=== PATIENT | female | born 1945 | race Caucasian/White ===

== ENCOUNTER 2018-11-09 10:11 | Emergency (ER) | payer OTHER, MEDICARE ==
[~2018-11-09] VITALS: Ht 170.2 cm; Wt 99.8 kg
[2018-11-09] MEDS ORDERED: ASPIRIN 81 MG TAB.CHEW PO ONE (10:45)
[2018-11-09 12:11] LABS: HEMATOCRIT 41.3 % (36-48); HEMOGLOBIN 13.7 g/dL (12.0-16.0); LYMPHOCYTES % (AUTO) 17.8 % (20.5-51.5); MEAN CORPUSCULAR HEMOGLOBIN 29 pg (27-31); MEAN CORPUSCULAR HGB CONC 33 % (32-36); MEAN CORPUSCULAR VOLUME 87 fL (79.0-98.0); NEUTROPHILS % (AUTO) 68.7 % (40.0-70.0); PLATELET COUNT (AUTO) 230 K/uL (130-430); RED BLOOD CELL COUNT(AUTO) 4.76 MIL/uL (4.2-6.2); RED CELL DISTRIBUTION WIDTH 13.5 % (9.0-15.0); WHITE BLOOD COUNT (AUTO) 4.7 K/uL (4.8-10.8)
[2018-11-09 12:12] LABS: BASOPHILS # (AUTO) 0.1 K/uL (0.0-0.2); BASOPHILS % (AUTO) 1.9 % (0.0-2.0); EOSINOPHILS # (AUTO) 0.1 K/uL (0.0-0.4); LYMPHOCYTES # (AUTO) 0.8 K/uL (1.0-5.5); MONOCYTES # (AUTO) 0.5 K/uL (0.0-1.0); MONOCYTES % (AUTO) 9.6 % (1.7-9.3); NEUTROPHILS # (AUTO) 3.3 K/uL (1.8-7.7)
[2018-11-09 12:14] LABS: ANION GAP 7 (5-15); CHLORIDE 105 mmol/L (98-107); CREATININE 0.74 mg/dL (0.55-1.30); GLUCOSE 96 mg/dL (70-99); POTASSIUM 4.9 mmol/L (3.5-5.1); SODIUM SERUM 140 mmol/L (136-145); UREA NITROGEN, BLOOD 13 mg/dL (8-21)
[2018-11-09 12:15] LABS: GFR AFRICAN AMERICAN 100 mL/min (>90)
[2018-11-09 12:19] LABS: PROTHROMBIN TIME 10.4 SECS (9.5-12.5)
[2018-11-09 12:26] LABS: ALANINE AMINOTRANSFERASE 16 U/L (12-78); ALBUMIN 3.6 g/dL (3.4-4.8); ASPARTATE AMINOTRANSFERASE 18 U/L (10-37); TOTAL BILIRUBIN 1.1 mg/dL (0.0-1.0)
[2018-11-09 12:58] VITALS: BP_SYST 124
== END 2018-11-09 12:58 | disposition home or self-care (01) ==
LOC: SED 10:11
DX: R07.89 Other chest pain (principal); F41.9 Anxiety disorder, unspecified; E78.5 Hyperlipidemia, unspecified; Z90.49 Acquired absence of other specified parts of digestive tract; Z90.89 Acquired absence of other organs
CPT/HCPCS: 36415; 71045; 80053; 82550-TC; 84484; 85025; 85610-TC; 85730-TC; 93005; 99284

== ENCOUNTER 2022-10-07 14:55 | Emergency (ER) | payer OTHER, MEDICARE ==
[~2022-10-07] VITALS: Ht 170.2 cm; Wt 97.5 kg
[2022-10-07 15:00] VITALS: BP_SYST 126
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
--- NOTE | 2022-10-07 15:31 | NUR ---
Patient to ER bed 06 to gown for evaluation. Side rails up. ReporT RECEIVED FROM JUAREZ BOTELLO
--- NOTE | 2022-10-07 15:46 | NUR ---
MD SOSA AT BEDSIDE.
[2022-10-07] MEDS ORDERED: BACITRACIN 1 GM OINT TP ONE ×2 (15:49→16:00)
[2022-10-07] MEDS ORDERED: DIPHTH,PERTUSS(ACELL),TET VAC 0.5 ML VIAL (Tdap) I.M. ONE (16:00)
[2022-10-07] MEDS ORDERED: IBUP-1969 PO (16:38)
[2022-10-07] MEDS ORDERED: HYDR-3917 PO (16:38)
--- NOTE | 2022-10-07 16:49 | NUR ---
Patient given written and verbal discharge instructions and verbalizes understanding. ER MD discussed with patient the results and treatment provided. Patient in stable condition. ID arm band removed. Rx of NORCO AND IBUPROFEN given. Patient educated on pain management and to follow up with PMD. Pain Scale 0/10 Opportunity for questions provided and answered. Medication side effect fact sheet provided.
== END 2022-10-07 16:49 | disposition home or self-care (01) ==
LOC: SED 14:55
DX: S00.83XA Contusion of other part of head, initial encounter (principal); E78.5 Hyperlipidemia, unspecified; Z79.899 Other long term (current) drug therapy; W01.0XXA Fall on same level from slipping, tripping and stumbling without subsequent striking against object, initial encounter; Y93.89 Activity, other specified; Y92.89 Other specified places as the place of occurrence of the external cause; Y99.8 Other external cause status
CPT/HCPCS: 70486-TC; 72125-TC; 76376; 90715; 99284

== ENCOUNTER 2024-04-11 07:40 | Inpatient (IN) | payer OTHER, MEDICARE ==
[2024-04-10 11:08] LABS: BASOPHILS % (AUTO) 0.5 % (0.0-2.0); EOSINOPHILS # (AUTO) 0.2 K/uL (0.0-0.4); EOSINOPHILS % (AUTO) 2.7 % (0.0-4.0); HEMATOCRIT 39.9 % (36-48); HEMOGLOBIN 13.6 g/dL (12.0-16.0); LYMPHOCYTES # (AUTO) 1.2 K/uL (1.0-5.5); LYMPHOCYTES % (AUTO) 14.8 % (20.5-51.5); MEAN CORPUSCULAR HEMOGLOBIN 30 pg (27-31); MEAN CORPUSCULAR HGB CONC 34 % (32-36); MEAN CORPUSCULAR VOLUME 88 fL (79.0-98.0); MONOCYTES # (AUTO) 0.8 K/uL (0.0-1.0); MONOCYTES % (AUTO) 9.8 % (1.7-9.3); NEUTROPHILS # (AUTO) 5.9 K/uL (1.8-7.7); NEUTROPHILS % (AUTO) 72.2 % (40.0-70.0); PLATELET COUNT (AUTO) 268 K/uL (130-430); RED BLOOD CELL COUNT(AUTO) 4.55 MIL/uL (4.2-6.2); RED CELL DISTRIBUTION WIDTH 13.8 % (9.0-15.0); WHITE BLOOD COUNT (AUTO) 8.1 K/uL (4.8-10.8)
[2024-04-10 11:20] LABS: INR 1.1 (0.8-1.2)
[2024-04-10 11:21] LABS: ALANINE AMINOTRANSFERASE 13 U/L (12-78); ALBUMIN 3.8 g/dL (3.4-4.8); ANION GAP 12 (5-15); ASPARTATE AMINOTRANSFERASE 16 U/L (10-37); CALCIUM 9.3 mg/dL (8.4-11.0); CARBON DIOXIDE 23 mmol/L (23-29); CHLORIDE 106 mmol/L (98-107); CREATININE 0.95 mg/dL (0.55-1.30); GLUCOSE 94 mg/dL (74-106); POTASSIUM 4.5 mmol/L (3.5-5.1); SODIUM SERUM 141 mmol/L (136-145); TOTAL BILIRUBIN 0.8 mg/dL (0.0-1.0); TOTAL PROTEIN, SERUM 7.6 g/dL (6.4-8.3); UREA NITROGEN, BLOOD 19 mg/dL (8-21)
[~2024-04-11] VITALS: Ht 170.2 cm; Wt 113.4 kg
[2024-04-11] MEDS: CEFAZOLIN SOD 2 GM in D5W 50 ML IV ONE (06:00)
[~2024-04-11 07:40] MED LIST: HYDR-3917 PO; IBUP-1969 PO
[2024-04-11] MEDS: SCOPOLAMINE HYDROBROMIDE 1 MG PATCH .72 H (TRANSDERM-SCOP) TD ONE ×2 (07:59→08:29)
[2024-04-11] MEDS: ACETAMINOPHEN 500 MG TABLET ONE (07:59)
[2024-04-11] MEDS: oxyCODONE HCL 10 MG TAB.ER.12H PO ONE ×2 (08:00→09:02)
[2024-04-11] MEDS: GABAPENTIN 300 MG CAPSULE ONE (08:00)
[2024-04-11] MEDS: CELECOXIB 100 MG CAPSULE ONE (08:02)
[2024-04-11] MEDS: CELECOXIB 100 MG CAPSULE PO ONE (08:29)
[2024-04-11] MEDS: ACETAMINOPHEN 500 MG TABLET PO ONE (08:29)
[2024-04-11] MEDS: GABAPENTIN 300 MG CAPSULE PO ONE (08:29)
[2024-04-11] MEDS: fentaNYL CITRATE/PF 100 MCG/2 ML AMP ONE (09:07)
[2024-04-11] MEDS: HYDROmorphone 2 MG/ML VIAL ONE (09:07)
[2024-04-11] MEDS: MIDAZOLAM HCL 2 MG/2 ML VIAL (VERSED) ONE (09:08)
[2024-04-11] MEDS: KETAMINE HCL IN 0.9 % NACL 50 MG/5 ML SYRINGE ONE (09:08)
[2024-04-11] MEDS ORDERED: LACTULOSE 20 GM/30 ML UDC PO PRN (09:15)
[2024-04-11] MEDS ORDERED: BISACODYL 10 MG/SUPPOSITORY RC PRN (09:15)
[2024-04-11] MEDS ORDERED: METOCLOPRAMIDE HCL 10 MG/2 ML VIAL IVP PRN (09:15)
[2024-04-11] MEDS ORDERED: NALOXONE HCL 0.4 MG/ML AMP (NARCAN) IVP PRN ×7 (09:15→11:00)
[2024-04-11] MEDS ORDERED: DIPHENHYDRAMINE HCL 25 MG CAPSULE PO PRN (09:15)
[2024-04-11] MEDS ORDERED: hydrALAZINE HCL 20 MG/ML VIAL IV PRN (10:15)
[2024-04-11] MEDS ORDERED: ONDANSETRON HCL 4 MG/2 ML VIAL IVP PRN ×2 (11:00→11:45)
[2024-04-11] MEDS ORDERED: traMADol HCL HCL 50 MG TABLET (ULTRAM) PO PRN (11:00)
[2024-04-11] MEDS ORDERED: oxyCODONE HCL 5 MG TABLET PO PRN ×2 (11:00)
[2024-04-11] MEDS ORDERED: HYDROmorphone 1 MG/ML INJ. CARTRIDGE IVP PRN ×5 (11:00)
[2024-04-11] MEDS ORDERED: LORATADINE 10 MG TABLET PO PRN (11:00)
[2024-04-11] MEDS ORDERED: LR 1,000 ML IV.SOLN IV ONE (11:15)
[2024-04-11] MEDS ORDERED: DEXAMETHASONE SOD PHOSPHATE 4 MG/ML VIAL ONE (11:15)
[2024-04-11] MEDS ORDERED: ONDANSETRON HCL 4 MG/2 ML VIAL ONE (11:15)
[2024-04-11] MEDS ORDERED: PROPOFOL 200MG/ 20ML VIAL (DIPRIVAN) IV ONE (11:15)
[2024-04-11] MEDS ORDERED: WATER FOR IRRIGATION,STERILE 1,000 ML IRRIG.SOLN IR ONE (11:15)
[2024-04-11] MEDS ORDERED: TRANEXAMIC ACID 1,000 MG/10 ML VIAL ONE (11:15)
[2024-04-11] MEDS ORDERED: ceFAZolin SODIUM 1 GM VIAL ONE (11:15)
[2024-04-11] MEDS ORDERED: BUPIVACAINE /PF 0.25% 30 ML VIAL INJ ONE (11:15)
[2024-04-11] MEDS ORDERED: SEVOFLURANE 15 MIN GAS INH ONE (11:15)
[2024-04-11] MEDS ORDERED: NS IRRIG SOLN 1000 ML IR ONE (11:15)
[2024-04-11] MEDS ORDERED: VANCOMYCIN HCL 1000 MG/VIAL IV ONE (11:15)
[2024-04-11] MEDS ORDERED: LUTE1CAP5 PO (13:22)
[2024-04-11] MEDS ORDERED: VIT1CAPS PO (13:22)
[2024-04-11] MEDS ORDERED: BILLBERRY PO (13:22)
[2024-04-11] MEDS ORDERED: PROP80CA58 PO (13:22)
[2024-04-11] MEDS ORDERED: SIMV-341 PO (13:22)
[2024-04-11] MEDS ORDERED: INUL2TAB6 PO (13:22)
[2024-04-11] MEDS ORDERED: ESCI20TA PO (13:22)
[2024-04-11] MEDS ORDERED: TURM1CAP2 PO (13:22)
[2024-04-11] MEDS ORDERED: MULT-1089 PO (13:22)
[2024-04-11] MEDS ORDERED: CITA40TA16 PO (15:38)
[2024-04-11 16:22] VITALS: BP_SYST 136; PULSE 68; RESP 18; TEMP 96.7
[2024-04-11] MEDS: ceFAZolin SODIUM 2 GM in D5W 50 ML IV SCH (16:37)
[2024-04-11 16:46] VITALS: O2SAT 95
[2024-04-11 16:59] VITALS: BP_SYST 129; PULSE 70; RESP 18; TEMP 97; O2SAT 95
[2024-04-11 20:02] VITALS: BP_SYST 144; PULSE 64; RESP 20; TEMP 98.1; O2SAT 96
[2024-04-11] MEDS: SENNOSIDES/DOCUSATE SODIUM 1 TAB TABLET(SENOKOT-S) PO SCH (21:07)
[2024-04-11] MEDS: HYDROmorphone 1 MG/ML INJ. CARTRIDGE IVP PRN (22:20)
[2024-04-12 00:09] VITALS: BP_SYST 113; PULSE 57; RESP 18; TEMP 97.5
[2024-04-12] MEDS: KETOROLAC TROMETHAMINE 10 MG TABLET (TORADOL) PO SCH (05:16)
[2024-04-12] MEDS: ACETAMINOPHEN 500 MG TABLET PO SCH (05:17)
[2024-04-12 06:33] LABS: BASOPHILS % (AUTO) 0.4 % (0.0-2.0); EOSINOPHILS % (AUTO) 0.2 % (0.0-4.0); HEMATOCRIT 32.4 % (36-48); HEMOGLOBIN 10.5 g/dL (12.0-16.0); LYMPHOCYTES # (AUTO) 1.4 K/uL (1.0-5.5); LYMPHOCYTES % (AUTO) 12.1 % (20.5-51.5); MEAN CORPUSCULAR HEMOGLOBIN 29 pg (27-31); MEAN CORPUSCULAR HGB CONC 33 % (32-36); MEAN CORPUSCULAR VOLUME 88 fL (79.0-98.0); MONOCYTES # (AUTO) 1.4 K/uL (0.0-1.0); MONOCYTES % (AUTO) 12.5 % (1.7-9.3); NEUTROPHILS # (AUTO) 8.5 K/uL (1.8-7.7); NEUTROPHILS % (AUTO) 74.8 % (40.0-70.0); PLATELET COUNT (AUTO) 232 K/uL (130-430); RED BLOOD CELL COUNT(AUTO) 3.66 MIL/uL (4.2-6.2); RED CELL DISTRIBUTION WIDTH 13.8 % (9.0-15.0); WHITE BLOOD COUNT (AUTO) 11.3 K/uL (4.8-10.8)
[2024-04-12 06:58] LABS: ALANINE AMINOTRANSFERASE 15 U/L (12-78); ALBUMIN 3.1 g/dL (3.4-4.8); ANION GAP 10 (5-15); ASPARTATE AMINOTRANSFERASE 24 U/L (10-37); CALCIUM 8.4 mg/dL (8.4-11.0); CARBON DIOXIDE 25 mmol/L (23-29); CHLORIDE 101 mmol/L (98-107); CREATININE 0.91 mg/dL (0.55-1.30); GLUCOSE 109 mg/dL (74-106); POTASSIUM 4.5 mmol/L (3.5-5.1); SODIUM SERUM 136 mmol/L (136-145); TOTAL PROTEIN, SERUM 6.2 g/dL (6.4-8.3); UREA NITROGEN, BLOOD 12 mg/dL (8-21)
[2024-04-12 08:00] VITALS: O2SAT 98
[2024-04-12 08:33] VITALS: BP_SYST 136; PULSE 85; RESP 16; TEMP 98.6; O2SAT 95
[2024-04-12] MEDS ORDERED: ESCITALOPRAM OXALATE 10 MG TABLET PO SCH (09:00)
[2024-04-12] MEDS: SIMVASTATIN 10 MG TABLET PO SCH (09:14)
[2024-04-12] MEDS: ASPIRIN 81 MG TAB.CHEW PO SCH (09:14)
[2024-04-12] MEDS: CITALOPRAM HYDROBROMIDE 20 MG TABLET PO SCH (09:15)
[2024-04-12] MEDS: CELECOXIB 200 MG CAPSULE PO SCH (11:09)
[2024-04-12 11:22] VITALS: PULSE 71; RESP 17; TEMP 98.6; O2SAT 95
[2024-04-12 12:00] VITALS: BP_SYST 136; PULSE 85; RESP 16; TEMP 98.6; O2SAT 95
== END 2024-04-12 12:20 | disposition home or self-care (01) | DRG 470 ==
LOC: SMU 07:40
PROVIDERS: ADMIT Student in an Organized Health Care Education/Training Program; ATTEND Student in an Organized Health Care Education/Training Program
PROC: 0SRB0JA Replacement of Left Hip Joint with Synthetic Substitute, Uncemented, Open Approach (ICD-10-PCS; principal; 2024-04-11 09:11)
DX: M16.12 Unilateral primary osteoarthritis, left hip (principal); Z20.822 Contact with and (suspected) exposure to COVID-19; Z79.899 Other long term (current) drug therapy
CPT/HCPCS: 36415; 71046; 72170-TC; 76000; 80053; 85025; 85610; 85730; 87081; 88304; 88311; 96379; 97110-GP; 97116-GP; 97530-GP; A4649; C1713; C1776; J0690; J1100; J1170; J2405; J2704; J3010; J3370; J3465; J3490; J7060; J7120